=== PATIENT | female | born 1980 | race Caucasian/White ===

== ENCOUNTER → 2025-03-20 | Outpatient (CLI) | payer OTHER, SELFPAY ==
--- NOTE | 2025-03-20 10:00 | XR_ITS ---
Examination: Leg length study, scanogram Date and time: March 20, 2025 1035 hours INDICATIONS: Low back pain one year Technique and findings: AP images hips knees and ankles obtained with ruler device No leg length discrepancy IMPRESSION: No leg length discrepancy
== END | disposition home or self-care (01) ==
PROVIDERS: PCP Nurse Practitioner Family; Referring Provider Nurse Practitioner Family; Visit Provider Nurse Practitioner Family
DX: F90.9 Attention-deficit hyperactivity disorder, unspecified type (principal); M54.40 Lumbago with sciatica, unspecified side
CPT/HCPCS: 77073

== ENCOUNTER 2025-09-23 10:30 | Outpatient (RCR) | payer OTHER, SELFPAY ==
--- NOTE | 2025-09-12 11:25 | PT.OIERPT ---
PT OP Initial Eval Patient Information Outpatient Physical Therapy Treatment Date: 09/12/25 Visit Reasons: Trochanteric bursitis of both hips Medical Diagnosis: M70.61; Lumbar Facet Arthropathy Treatment Dx #1: Back Pain Treatment Dx #2: Hip Pain Start of Care: 09/12/25 Date of Onset: 1 year ago Smoking Status Smoking Status: Never smoker Initial Assessment Subjective: Pt is a 45 y/o female reports of chronic back pain (03/04) with intermittent pain down her legs since her back injury ~ 1 year ago. Pt's MRI confirmed L4-L5 4 mm disc bulge and L5-S1 6 mm dis bulge. Pt has seen multiple specialist and has attempted conservative treatments without success. Pt has limitation with sitting, standing, work duties (teacher), yard work, cooking, and performing recreational actvities. Objective: L/S AROM: all motions are WFL with end range pain in all plane Hip PROM: all motions are WNL Hip MMTs: grossly 3+/5 Muscle Length: Hs tightness Special Test (-) slump (+) SLR Assessment: Pt demonstrate back and bilateral hip pain consistent with MRI findings leading to difficulty with ADLs. Pt will attempt physical therapy if pain persist Pt will be refer back to provider for further consultation. Short Term and Group Home Goals 1) Increase L/S AROM WNL in 6 wks to be able to perform chores 2) Increase core strength WNL in 6 wks to be able to perform recreational activities 3) Decrease back pain to 2/10 in 6 wks to be able to resume yardwork 4) Increase hip MMTs grossly to 4-/5 in 6 wks to be able to walk more than 30 mins 5) Indep with HEP Treatment Plan 1) Manual Therapy 2) Therapeutic Activities 3) Therapeutic Exercises 4) Modalities (ice, heat, traction) Frequency and Duration: 2 x wk for 6 wks Certification Dates: 09/12/25 to 12/11/25 Procedure Charges OP PT Eval Mod Complex 30 minutes: Yes
--- NOTE | 2025-09-23 11:54 | PT.ODAYNRPT ---
PT Outpatient Daily Note OP Daily Note Outpatient Physical Therapy Treatment Date: 09/23/25 Visit Reasons: Trochanteric bursitis of both hips Subjective: Pt's back continues to hurt and feels stiff. No pain down the legs lately, however, patient has been off work and on vacation. Objective: Please see flow chart for list of ther ex performed Assessment: tolerate exercises with minimal pain; no radicular pain in the legs reported with all exercises Plan: Continue with PT Length of Time (minutes) of Treatment: 30 Minutes Procedure Charges Therapeutic Exercise 30 minutes: Yes
== END 2025-09-24 23:59 | disposition home or self-care (01) ==
LOC: CPTX 10:30
PROVIDERS: PCP Orthopaedic Surgery; Referring Provider Orthopaedic Surgery; Visit Provider Orthopaedic Surgery
DX: M51.362 Other intervertebral disc degeneration, lumbar region with discogenic back pain and lower extremity pain (principal); M47.816 Spondylosis without myelopathy or radiculopathy, lumbar region; M70.61 Trochanteric bursitis, right hip; M70.62 Trochanteric bursitis, left hip
CPT/HCPCS: 97110; 97162